=== PATIENT | female | born 1960 | race Caucasian/White ===

== ENCOUNTER 2016-11-14 03:02 | Emergency (ER) | payer MEDICAID ==
[~2016-11-14] VITALS: Ht 165.1 cm; Wt 120.9 kg
[2016-11-14 03:02] VITALS: TEMP 97.6; Ht 165.1 cm; Wt 120.9 kg
[~2016-11-14 03:02] MED LIST: ESCI20TA30 PO; GABA-338 PO; LEVE500T9 PO; LORA0.5T2 PO; LOSA25TA34 PO; METF850T2 PO; MULT1TAB69 PO; PANT40TA27 PO; PRAV40TA3 PO; SITA100T12 PO
--- OUTSIDE RECORDS SUMMARY | 2016-11-14 03:05 | XMS REPORT | Continuity of Care Document ---
Author Author [facility] Organization [facility] Address Unknown Phone Unavailable Allergies Active Description Code Type Severity Reaction Onset Reported/Identified Relationship to Patient Clinical Status Yes CODEINE Drug Allergy N/A N/A Yes CODINE CODINE Drug Allergy Unknown UNKNOWN 11/04/2015 Yes oxycodone oxycodone Drug Allergy Unknown UNKNOWN 12/13/2015 Yes alprazolam alprazolam Drug Allergy Severe ITCHING 12/19/2015 Medications Problems Date Dx Coded Attending Type Code Diagnosis Diagnosed By 11/13/2015 Caroline Garcia MD E11.9 TYPE 2 DIABETES MELLITUS WITHOUT COMPLICATIONS 11/13/2015 Caroline Garcia MD E78.5 HYPERLIPIDEMIA, UNSPECIFIED 11/13/2015 Caroline Garcia MD F02.80 DEMENTIA IN OTH DISEASES CLASSD ELSWHR W/O BEHAVRL 11/13/2015 Caroline Garcia MD F44.5 CONVERSION DISORDER WITH SEIZURES OR CONVULSIONS 11/13/2015 Caroline Garcia MD 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 11/13/2015 Caroline Garcia MD I10 ESSENTIAL (PRIMARY) HYPERTENSION 11/13/2015 Caroline Garcia MD K21.9 GASTRO-ESOPHAGEAL REFLUX DISEASE WITHOUT ESOPHAGIT 11/13/2015 Caroline Garcia MD K76.0 FATTY (CHANGE OF) LIVER, NOT ELSEWHERE CLASSIFIED 11/13/2015 Caroline Garcia MD R55 SYNCOPE AND COLLAPSE Procedures Results Test Result Range CHEM/HEM PROFILE-BEDSIDE - 11/04/15 01:57 POTASSIUM 3.9 mmol/L 3.5-5.3 METHOD Bedside ANION GAP 17 mmol/L 10-20 METHOD Bedside GLUCOSE 134 mg/dL 70-99 BLOOD UREA NITROGEN 6 mg/dL 7-20 CREATININE 0.7 mg/dL 0.6-1.0 HEMOGLOBIN 14.6 gm/dL 12.0-16.0 HEMATOCRIT 43.0 % 37.0-47.0 SODIUM 140 mmol/L 135-148 CHLORIDE 104 mmol/L 98-110 CARBON DIOXIDE 24 mmol/L 21-32 CALCIUM IONIZED 4.8 mg/dL 4.5-5.3 CBC W/DIFF - 11/13/15 17:30 BASOPHIL # 0.1 k/cumm 0.0-0.2 BASOPHIL % 1 % 0-1 EOSINOPHIL # 0.1 k/cumm 0.1-0.5 EOSINOPHIL % 2 % 2-4 GRANULOCYTE # 5.1 k/cumm 2.0-9.0 GRANULOCYTE % 60 % 50-75 LYMPHOCYTE # 2.4 k/cumm 1.0-4.0 LYMPHOCYTE % 28 % 20-30 MEAN CELL HGB 32.1 pg 27.0-33.0 MEAN CELL HGB CONCENTRATION 33.1 g/dL 32.0-37.0 MEAN CELL VOLUME 97.0 fl 80.0-100.0 MONOCYTE # 0.8 k/cumm 0.1-1.0 MONOCYTE % 10 % 4-6 RED BLOOD CELL 4.70 m/cumm 4.00-6.00 RED CELL DISTRIBUTION WIDTH 13.4 % 11.0- 15.6 WHITE BLOOD CELL 8.6 k/cumm 5.0-10.0 HEMOGLOBIN 15.1 gm/dL 12.0-16.0 HEMATOCRIT 45.6 % 37.0-47.0 PLATELET COUNT 152 k/cumm 150-400 GLUCOSE (POC) - 11/13/15 18:03 GLUCOSE (POC) 119 mg/dL 70-99 CHEM/HEM PROFILE-BEDSIDE - 11/13/15 19:23 POTASSIUM 4.3 mmol/L 3.5-5.3 METHOD Bedside ANION GAP 20 mmol/L 10-20 METHOD Bedside GLUCOSE 138 mg/dL 70-99 BLOOD UREA NITROGEN 9 mg/dL 7-20 CREATININE 0.6 mg/dL 0.6-1.0 HEMOGLOBIN 15.0 gm/dL 12.0-16.0 HEMATOCRIT 44.0 % 37.0-47.0 SODIUM 138 mmol/L 135-148 CHLORIDE 99 mmol/L 98-110 CARBON DIOXIDE 24 mmol/L 21-32 CALCIUM IONIZED 4.8 mg/dL 4.5-5.3 GLUCOSE (POC) - 11/14/15 06:03 GLUCOSE (POC) 144 mg/dL 70-99 GLUCOSE (POC) - 11/14/15 11:42 GLUCOSE (POC) 189 mg/dL -99 GLUCOSE (POC) - 11/14/15 17:39 GLUCOSE (POC) 149 mg/dL -99 GLUCOSE (POC) - 11/14/15 22:56 GLUCOSE (POC) 163 mg/dL 70-99 GLUCOSE (POC) - 11/15/15 04:55 GLUCOSE (POC) 146 mg/dL 70-99 CBC W/DIFF - 11/15/15 05:36 EOSINOPHIL # 0.1 k/cumm 0.1-0.5 EOSINOPHIL % 2 % 2-4 GRANULOCYTE # 4.2 k/cumm 2.0-9.0 GRANULOCYTE % 57 % 50-75 LYMPHOCYTE # 2.5 k/cumm 1.0-4.0 LYMPHOCYTE % 34 % 20-30 MEAN CELL HGB 31.9 pg 27.0-33.0 MEAN CELL HGB CONCENTRATION 32.6 g/dL 32.0-37.0 MEAN CELL VOLUME 97.7 fl 80.0-100.0 MONOCYTE # 0.5 k/cumm 0.1-1.0 MONOCYTE % 7 % 4-6 RED BLOOD CELL 4.42 m/cumm 4.00-6.00 RED CELL DISTRIBUTION WIDTH 13.3 % 11.0- 15.6 WHITE BLOOD CELL 7.3 k/cumm 5.0-10.0 HEMOGLOBIN 14.1 gm/dL 12.0-16.0 HEMATOCRIT 43.2 % 37.0-47.0 PLATELET COUNT 142 k/cumm 150-400 METABOLIC PANEL, BASIC - 11/15/15 05:36 POTASSIUM 3.8 mmol/L 3.5-5.3 EST GFR (MDRD) > 60 mL/min > 59 ANION GAP 7 mmol/L 5-15 EST CrCl (CG) > 60 mL/min > 59 GLUCOSE 135 mg/dL 70-99 CALCIUM 8.5 mg/dL 8.5-10.1 BLOOD UREA NITROGEN 8 mg/dL 7-20 CREATININE 0.6 mg/dL 0.6-1.0 SODIUM 137 mmol/L 135-148 CHLORIDE 103 mmol/L 98-110 CARBON DIOXIDE 27 mmol/L 21-32 PHOSPHORUS - 11/15/15 05:36 PHOSPHORUS 2.9 mg/dL 2.5-4.9 MAGNESIUM - 11/15/15 05:36 MAGNESIUM 2.0 mg/dL 1.8-2.4 GLUCOSE (POC) - 11/15/15 11:46 GLUCOSE (POC) 208 mg/dL - GLUCOSE (POC) - 11/15/15 17:36 GLUCOSE (POC) 150 mg/dL -99 GLUCOSE (POC) - 11/15/15 22:03 GLUCOSE (POC) 155 mg/dL 70-99 CBC W/DIFF - 11/16/15 05:53 EOSINOPHIL # 0.1 k/cumm 0.1-0.5 EOSINOPHIL % 2 % 2-4 GRANULOCYTE # 4.4 k/cumm 2.0-9.0 GRANULOCYTE % 55 % 50-75 LYMPHOCYTE # 2.9 k/cumm 1.0-4.0 LYMPHOCYTE % 36 % 20-30 MEAN CELL HGB 31.9 pg 27.0-33.0 MEAN CELL HGB CONCENTRATION 32.9 g/dL 32.0-37.0 MEAN CELL VOLUME 97.1 fl 80.0-100.0 MONOCYTE # 0.6 k/cumm 0.1-1.0 MONOCYTE % 7 % 4-6 RED BLOOD CELL 4.48 m/cumm 4.00-6.00 RED CELL DISTRIBUTION WIDTH 13.0 % 11.0- 15.6 WHITE BLOOD CELL 8.0 k/cumm 5.0-10.0 HEMOGLOBIN 14.3 gm/dL 12.0-16.0 HEMATOCRIT 43.5 % 37.0-47.0 PLATELET COUNT 143 k/cumm 150-400 RENAL FUNCTION PANEL - 11/16/15 05:53 POTASSIUM 4.0 mmol/L 3.5-5.3 EST GFR (MDRD) > 60 mL/min > 59 ANION GAP 6 mmol/L 5-15 EST CrCl (CG) > 60 mL/min > 59 GLUCOSE 127 mg/dL 70-99 CALCIUM 8.2 mg/dL 8.5-10.1 BLOOD UREA NITROGEN 9 mg/dL 7-20 CREATININE 0.6 mg/dL 0.6-1.0 SODIUM 138 mmol/L 135-148 CHLORIDE 104 mmol/L 98-110 CARBON DIOXIDE 28 mmol/L 21-32 ALBUMIN 3.2 gm/dL 3.4-5.0 PHOSPHORUS 2.9 mg/dL 2.5-4.9 GLUCOSE (POC) - 11/16/15 06:13 GLUCOSE (POC) 138 mg/dL 70-99 GLUCOSE (POC) - 11/16/15 11:39 GLUCOSE (POC) 162 mg/dL 70-99 GLUCOSE (POC) - 11/16/15 17:37 GLUCOSE (POC) 189 mg/dL 70-99 GLUCOSE (POC) - 11/16/15 21:52 GLUCOSE (POC) 169 mg/dL 70-99 GLUCOSE (POC) - 11/17/15 05:37 GLUCOSE (POC) 144 mg/dL 70-99 CBC W/DIFF - 11/17/15 06:47 EOSINOPHIL # 0.1 k/cumm 0.1-0.5 EOSINOPHIL % 2 % 2-4 GRANULOCYTE # 4.5 k/cumm 2.0-9.0 GRANULOCYTE % 60 % 50-75 LYMPHOCYTE # 2.2 k/cumm 1.0-4.0 LYMPHOCYTE % 30 % 20-30 MEAN CELL HGB 32.4 pg 27.0-33.0 MEAN CELL HGB CONCENTRATION 34.5 g/dL 32.0-37.0 MEAN CELL VOLUME 93.9 fl 80.0-100.0 MONOCYTE # 0.6 k/cumm 0.1-1.0 MONOCYTE % 8 % 4-6 RED BLOOD CELL 4.41 m/cumm 4.00-6.00 RED CELL DISTRIBUTION WIDTH 12.8 % 11.0- 15.6 WHITE BLOOD CELL 7.4 k/cumm 5.0-10.0 HEMOGLOBIN 14.3 gm/dL 12.0-16.0 HEMATOCRIT 41.4 % 37.0-47.0 PLATELET COUNT 138 k/cumm 150-400 RENAL FUNCTION PANEL - 11/17/15 06:47 POTASSIUM 4.4 mmol/L 3.5-5.3 EST GFR (MDRD) > 60 mL/min > 59 ANION GAP 7 mmol/L 5-15 EST CrCl (CG) > 60 mL/min > 59 GLUCOSE 139 mg/dL 70-99 CALCIUM 8.3 mg/dL 8.5-10.1 BLOOD UREA NITROGEN 9 mg/dL 7-20 CREATININE 0.6 mg/dL 0.6-1.0 SODIUM 137 mmol/L 135-148 CHLORIDE 106 mmol/L 98-110 CARBON DIOXIDE 24 mmol/L 21-32 ALBUMIN 3.1 gm/dL 3.4-5.0 PHOSPHORUS 3.1 mg/dL 2.5-4.9 GLUCOSE (POC) - 11/17/15 11:34 GLUCOSE (POC) 142 mg/dL 70-99 GLUCOSE (POC) - 11/17/15 17:09 GLUCOSE (POC) 149 mg/dL 70-99 GLUCOSE (POC) - 11/17/15 21:07 GLUCOSE (POC) 189 mg/dL 70-99 GLUCOSE (POC) - 11/18/15 04:29 GLUCOSE (POC) 131 mg/dL 70-99 CBC W/DIFF - 11/18/15 06:27 EOSINOPHIL # 0.1 k/cumm 0.1-0.5 EOSINOPHIL % 2 % 2-4 GRANULOCYTE # 4.2 k/cumm 2.0-9.0 GRANULOCYTE % 53 % 50-75 LYMPHOCYTE # 2.9 k/cumm 1.0-4.0 LYMPHOCYTE % 37 % 20-30 MEAN CELL HGB 31.5 pg 27.0-33.0 MEAN CELL HGB CONCENTRATION 32.5 g/dL 32.0-37.0 MEAN CELL VOLUME 97.0 fl 80.0-100.0 MONOCYTE # 0.6 k/cumm 0.1-1.0 MONOCYTE % 8 % 4-6 RED BLOOD CELL 4.38 m/cumm 4.00-6.00 RED CELL DISTRIBUTION WIDTH 13.2 % 11.0- 15.6 WHITE BLOOD CELL 7.8 k/cumm 5.0-10.0 HEMOGLOBIN 13.8 gm/dL 12.0-16.0 HEMATOCRIT 42.5 % 37.0-47.0 PLATELET COUNT 147 k/cumm 150-400 RENAL FUNCTION PANEL - 11/18/15 06:27 POTASSIUM 3.9 mmol/L 3.5-5.3 EST GFR (MDRD) > 60 mL/min > 59 ANION GAP 4 mmol/L 5-15 EST CrCl (CG) > 60 mL/min > 59 GLUCOSE 136 mg/dL 70-99 CALCIUM 8.5 mg/dL 8.5-10.1 BLOOD UREA NITROGEN 9 mg/dL 7-20 CREATININE 0.7 mg/dL 0.6-1.0 SODIUM 138 mmol/L 135-148 CHLORIDE 105 mmol/L 98-110 CARBON DIOXIDE 29 mmol/L 21-32 ALBUMIN 3.2 gm/dL 3.4-5.0 PHOSPHORUS 3.4 mg/dL 2.5-4.9 GLUCOSE (POC) - 11/18/15 11:48 GLUCOSE (POC) 167 mg/dL 70-99 GLUCOSE (POC) - 11/18/15 17:48 GLUCOSE (POC) 173 mg/dL 70-99 GLUCOSE (POC) - 11/18/15 20:08 GLUCOSE (POC) 185 mg/dL 70-99 GLUCOSE (POC) - 11/19/15 05:23 GLUCOSE (POC) 143 mg/dL 70-99 CBC W/DIFF - 11/19/15 06:24 EOSINOPHIL # 0.2 k/cumm 0.1-0.5 EOSINOPHIL % 2 % 2-4 GRANULOCYTE # 4.1 k/cumm 2.0-9.0 GRANULOCYTE % 56 % 50-75 LYMPHOCYTE # 2.5 k/cumm 1.0-4.0 LYMPHOCYTE % 34 % 20-30 MEAN CELL HGB 32.5 pg 27.0-33.0 MEAN CELL HGB CONCENTRATION 33.5 g/dL 32.0-37.0 MEAN CELL VOLUME 96.9 fl 80.0-100.0 MONOCYTE # 0.5 k/cumm 0.1-1.0 MONOCYTE % 7 % 4-6 RED BLOOD CELL 4.53 m/cumm 4.00-6.00 RED CELL DISTRIBUTION WIDTH 13.2 % 11.0- 15.6 WHITE BLOOD CELL 7.3 k/cumm 5.0-10.0 HEMOGLOBIN 14.7 gm/dL 12.0-16.0 HEMATOCRIT 43.9 % 37.0-47.0 PLATELET COUNT 158 k/cumm 150-400 RENAL FUNCTION PANEL - 11/19/15 06:24 POTASSIUM 4.0 mmol/L 3.5-5.3 EST GFR (MDRD) > 60 mL/min > 59 ANION GAP 7 mmol/L 5-15 EST CrCl (CG) > 60 mL/min > 59 GLUCOSE 143 mg/dL 70-99 CALCIUM 9.1 mg/dL 8.5-10.1 BLOOD UREA NITROGEN 7 mg/dL 7-20 CREATININE 0.6 mg/dL 0.6-1.0 SODIUM 140 mmol/L 135-148 CHLORIDE 104 mmol/L 98-110 CARBON DIOXIDE 29 mmol/L 21-32 ALBUMIN 3.4 gm/dL 3.4-5.0 PHOSPHORUS 3.7 mg/dL 2.5-4.9 GLUCOSE (POC) - 11/19/15 11:27 GLUCOSE (POC) 176 mg/dL 70-99 GLUCOSE (POC) - 11/19/15 17:09 GLUCOSE (POC) 133 mg/dL 70-99 GLUCOSE (POC) - 11/19/15 20:23 GLUCOSE (POC) 236 mg/dL 70-99 GLUCOSE (POC) - 11/20/15 06:57 GLUCOSE (POC) 167 mg/dL 70-99 GLUCOSE (POC) - 11/20/15 11:51 GLUCOSE (POC) 175 mg/dL 70-99 TROPONIN I BEDSIDE - 11/22/15 00:48 METHOD Bedside TROPONIN I < 0.04 ng/mL < 0.11 CBC W/DIFF - 11/22/15 00:50 BASOPHIL # 0.1 k/cumm 0.0-0.2 BASOPHIL % 1 % 0-1 EOSINOPHIL # 0.2 k/cumm 0.1-0.5 EOSINOPHIL % 1 % 2-4 GRANULOCYTE # 7.9 k/cumm 2.0-9.0 GRANULOCYTE % 66 % 50-75 LYMPHOCYTE # 3.0 k/cumm 1.0-4.0 LYMPHOCYTE % 25 % 20-30 MEAN CELL HGB 33.0 pg 27.0-33.0 MEAN CELL HGB CONCENTRATION 34.5 g/dL 32.0-37.0 MEAN CELL VOLUME 95.6 fl 80.0-100.0 MONOCYTE # 0.8 k/cumm 0.1-1.0 MONOCYTE % 7 % 4-6 RED BLOOD CELL 4.58 m/cumm 4.00-6.00 RED CELL DISTRIBUTION WIDTH 13.3 % 11.0- 15.6 WHITE BLOOD CELL 11.9 k/cumm 5.0-10.0 HEMOGLOBIN 15.1 gm/dL 12.0-16.0 HEMATOCRIT 43.8 % 37.0-47.0 PLATELET COUNT 160 k/cumm 150-400 PARTIAL THROMBOPLASTIN TIME - 11/22/15 00:50 PARTIAL THROMBOPLASTIN TIME 33 sec 23-39 METABOLIC PANEL, COMPREHN - 11/22/15 00:50 POTASSIUM 4.3 mmol/L 3.5-5.3 EST GFR (MDRD) > 60 mL/min > 59 ANION GAP 10 mmol/L 5-15 GLUCOSE 162 mg/dL 70-99 CALCIUM 9.2 mg/dL 8.5-10.1 BLOOD UREA NITROGEN 14 mg/dL 7-20 CREATININE 0.8 mg/dL 0.6-1.0 SODIUM 138 mmol/L 135-148 CHLORIDE 104 mmol/L 98-110 AST/SGOT 32 Units/L 10-37 ALT/SGPT 58 Units/L < 66 CARBON DIOXIDE 24 mmol/L 21-32 TOTAL PROTEIN 7.7 gm/dL 6.4-8.2 ALBUMIN 3.5 gm/dL 3.4-5.0 BILI TOTAL 0.4 mg/dL 0.0-1.0 ALKALINE PHOSPHATASE TOTAL 78 IU/L 45- 117 TROPONIN I - 11/22/15 00:50 TROPONIN I < 0.02 ng/mL < 0.07 CHEM/HEM PROFILE-BEDSIDE - 11/26/15 21:30 POTASSIUM 4.2 mmol/L 3.5-5.3 METHOD Bedside ANION GAP 23 mmol/L 10-20 METHOD Bedside GLUCOSE 243 mg/dL 70-99 BLOOD UREA NITROGEN 8 mg/dL 7-20 CREATININE 0.6 mg/dL 0.6-1.0 HEMOGLOBIN 15.0 gm/dL 12.0-16.0 HEMATOCRIT 44.0 % 37.0-47.0 SODIUM 138 mmol/L 135-148 CHLORIDE 99 mmol/L 98-110 CARBON DIOXIDE 22 mmol/L 21-32 CALCIUM IONIZED 4.7 mg/dL 4.5-5.3 CBC W/DIFF - 11/26/15 21:41 EOSINOPHIL # 0.1 k/cumm 0.1-0.5 EOSINOPHIL % 1 % 2-4 GRANULOCYTE # 5.4 k/cumm 2.0-9.0 GRANULOCYTE % 62 % 50-75 LYMPHOCYTE # 2.5 k/cumm 1.0-4.0 LYMPHOCYTE % 29 % 20-30 MEAN CELL HGB 33.1 pg 27.0-33.0 MEAN CELL HGB CONCENTRATION 34.4 g/dL 32.0-37.0 MEAN CELL VOLUME 96.3 fl 80.0-100.0 MONOCYTE # 0.7 k/cumm 0.1-1.0 MONOCYTE % 8 % 4-6 RED BLOOD CELL 4.35 m/cumm 4.00-6.00 RED CELL DISTRIBUTION WIDTH 13.2 % 11.0- 15.6 WHITE BLOOD CELL 8.7 k/cumm 5.0-10.0 HEMOGLOBIN 14.4 gm/dL 12.0-16.0 HEMATOCRIT 41.9 % 37.0-47.0 PLATELET COUNT 169 k/cumm 150-400 CHEM/HEM PROFILE-BEDSIDE - 11/30/15 02:46 POTASSIUM 4.2 mmol/L 3.5-5.3 METHOD Bedside ANION GAP 19 mmol/L 10-20 METHOD Bedside GLUCOSE 126 mg/dL 70-99 BLOOD UREA NITROGEN 11 mg/dL 7-20 CREATININE 0.5 mg/dL 0.6-1.0 HEMOGLOBIN 14.3 gm/dL 12.0-16.0 HEMATOCRIT 42.0 % 37.0-47.0 SODIUM 139 mmol/L 135-148 CHLORIDE 101 mmol/L 98-110 CARBON DIOXIDE 24 mmol/L 21-32 CALCIUM IONIZED 4.9 mg/dL 4.5-5.3 CREATINE KINASE (CK/CPK) - 12/13/15 01:10 CREATINE KINASE (CK/CPK) 75 Units/L < 193 CHEM/HEM PROFILE-BEDSIDE - 12/13/15 01:17 POTASSIUM 4.0 mmol/L 3.5-5.3 METHOD Bedside ANION GAP 20 mmol/L 10-20 METHOD Bedside GLUCOSE 149 mg/dL 70-99 BLOOD UREA NITROGEN 11 mg/dL 7-20 CREATININE 0.7 mg/dL 0.6-1.0 HEMOGLOBIN 14.6 gm/dL 12.0-16.0 HEMATOCRIT 43.0 % 37.0-47.0 SODIUM 138 mmol/L 135-148 CHLORIDE 101 mmol/L 98-110 CARBON DIOXIDE 22 mmol/L 21-32 CALCIUM IONIZED 4.7 mg/dL 4.5-5.3 TROPONIN I BEDSIDE - 01/19/16 02:07 METHOD Bedside TROPONIN I < 0.04 ng/mL < 0.11 CHEM/HEM PROFILE-BEDSIDE - 01/19/16 02:37 POTASSIUM 4.2 mmol/L 3.5-5.3 METHOD Bedside ANION GAP 20 mmol/L 10-20 METHOD Bedside GLUCOSE 168 mg/dL 70-99 BLOOD UREA NITROGEN 9 mg/dL 7-20 CREATININE 0.6 mg/dL 0.6-1.0 HEMOGLOBIN 14.3 gm/dL 12.0-16.0 HEMATOCRIT 42.0 % 37.0-47.0 SODIUM 139 mmol/L 135-148 CHLORIDE 101 mmol/L 98-110 CARBON DIOXIDE 23 mmol/L 21-32 CALCIUM IONIZED 4.8 mg/dL 4.5-5.3 Encounters ACCT No. Visit Date/Time Discharge Status Pt. Type Provider Facility Loc./Unit Complaint [id number] 02/29/2016 01:34:00 2015 03:18:00 DIS Emergency Joseph GOOD, [facility] [id number] 02/28/2016 02:22:00 2015 04:50:00 DIS Emergency [facility] [id number] 02/13/2016 02:36:00 2015 04:51:00 DIS Emergency [facility] [id number] 01/19/2016 01:20:00 2015 03:10:00 DIS Emergency [facility] [id number] 12/24/2015 23:21:00 2015 00:00:00 DIS Emergency [id number] 12/19/2015 01:13:00 2015 04:23:00 DIS Emergency [facility] [id number] 12/03/2015 22:37:00 2015 23:50:00 [id number] 11/30/2015 02:10:00 2015 04:20:00 DIS Emergency [facility] [id number] 11/26/2015 20:59:00 2015 22:45:00 DIS Emergency Hemant GOOD, [facility] [id number] 11/21/2015 23:56:00 2015 02:52:00 DIS Emergency Elena GOOD[facility] [id number] 11/13/2015 21:17:00 2015 17:43:00 DIS Inpatient Jose GOOD, [facility]argas [id number] 11/04/2015 01:10:00 2015 03:07:00 DIS Emergency Joseph GOOD, Michael Hall [facility] [id number] 12/12/2015 23:51:00 Document Registration
[2016-11-14] MEDS ORDERED: NORMAL SALINE 1,000 ML IV ONE (03:15)
--- NOTE | 2016-11-14 03:17 | ERPDOC ---
Departure Disposition Decision Date: Nov 14, 2016 Disposition Decision Time: 04:30 Disposition: 01 DISCHARGED HOME, SELF-CARE Impression Impression Impression: Primary Impression: Psychogenic nonepileptic seizure Severity: Moderate Condition: Improved Seen By: Physician only Referrals: OTHER (PCP) FABIAN COOPER DO (Family) Patient Instructions: Nonepileptic Seizures (ED) Problems/Meds/Labs Reviewed?: Yes Medications reviewed and manag: Yes Additional Instructions: Follow-up with case investigator at Dr. Cooper's office Follow up care ordered?: Yes Mental Status: Alert, Oriented HPI - General Medical General Chief Complaint: Seizure Stated Complaint: SEIZURE Time Seen by Provider: 03:17 Source: patient, EMS, EMS notes reviewed, old records Exam Limitations: other (suspect underlying psychiatric issues) HPI - General Medical Initial Comments Patient is a 56-year-old female presents emergency room for evaluation of seizure. Patient was evaluated 6 days ago in the emergency department was discharged with psychogenic nonepileptic pseudoseizures. Patient today had what appeared to be a seizure, EMS was called. Patient on arrival of EMS had her arms crossed for chest and was clenched landing on her left side she was responding to commands at that time. Patient was placed in the ambulance and brought to the ER for evaluation Allergies: Coded Allergies: codeine (Verified Allergy, Mild, 11/14/16) Past History Patient Surgical History unknown Past Medical History Metabolic: diabetes, hypertension GI: GERD, other Neurological: migraines, seizures Musculoskeletal: osteoarthritis Psychological: anxiety, depression Surgical History Reproductive/: uterine ablation Joint: shoulder Family History Family PMH: FOUND: other Social History Does patient use chewing tobac: No Second Hand Exposure: No Substance Use Type: does not use Alcohol Intake: none Review of Systems Constitutional Constitutional: DENIES: appetite decrease, chills, dizziness, fever, weakness ENMT Sinuses: DENIES: congestion, rhinorrhea Cardiovascular Cardiac: DENIES: chest pain Pulmonary Respiratory: DENIES: cough GI Upper Abdomen: DENIES: nausea, pain, vomiting Lower Abdomen: DENIES: constipation, diarrhea, pain General: DENIES: frequency, urgency Integumentary Skin: DENIES: color change, itching, rash Neurological General: seizures (pseudoseizures) Psychiatric Psychiatric: anxiety, DENIES: depression, emotional instability, nervousness Physical Exam General General Nourishment: well nourished, well developed, obese General Body Habitus: well groomed Vitals and Pain Weight: Kilograms: 120.900 Height (feet): 5 Height (inches): 5.00 Triage Pain Scale: RN VS reviewed by Provider: Yes Eyes (brief) Eyes Brief: found: EOMI ENMT (brief) ENMT Brief: FOUND: mucosa moist, normal dentition, NOT FOUND: nasal erythema, pharnyx erythema, tonsillar deviation Neck (brief) Neck: NOT FOUND: adenopathy, spasm, tenderness Respiratory (brief) Respiratory: FOUND: clear all elizabeth, equal bilaterally, NOT FOUND: rales, wheezes Cardiovascular (brief) Cardiac: FOUND: regular rate, regular rhythm Capillary Refill: <2 sec Abdomen (brief) Abdominal Brief: FOUND: bowel normo active x4, soft, NOT FOUND: tender Lymphatic (brief) Lymphatic Brief: NOT FOUND: adenopathy Musculoskeletal (brief) Musculoskeletal Brief: NOT FOUND: spasm, tenderness Integumentary (brief) Integumentary Brief: FOUND: dry, pink, warm, NOT FOUND: rash Neurologic (brief) Neurological Brief: FOUND: CN w/o gross def to obs, motor-no gross deficits, sensory-no gross deficits Psychiatric (brief) Psychiatric Brief: FOUND: alert, oriented Differential Diagnoses Considering: Alcohol Intoxication, Depression, Hypo/Hyperglycemia, Hypo/ Hyperkalemia, Hypo/Hypernatremia, Medication Effect, Metabolic, Seizure, Other ( pseudoseizures) Progress Results/Orders Orders Procedure Category Date Status Time Iv Lock (Ed Only) EDM 11/14/16 Transmitted 03:10 Cbc W/Auto LAB 11/14/16 Complete Diff-Reflex Manual 03:10 Bmp - Basic Metabolic LAB 11/14/16 Complete Panel 03:10 Normal Saline (Normal PHA 11/14/16 Complete Saline Iv) 03:15 Troponin I W LAB 11/14/16 Complete Hemolysis Index 03:24 EKG EKG 11/14/16 Taken 03:24 Case Management CONS 11/14/16 Transmitted Consult 04:34 Lab Results Laboratory Tests Test 11/14/16 03:26 White Blood Count 7.4T/MM3 Red Blood Count 4.17M/MM3 Hemoglobin 13.2GM/DL Hematocrit 40.1% Mean Corpuscular Volume 96.2UM3 Mean Corpuscular Hemoglobin 31.7UUG Mean Corpuscular Hemoglobin Concent 32.9GM/DL RDW Standard Deviation 46.3FL Platelet Count 146T/MM3 Mean Platelet Volume 11.1UM3 Immature Granulocyte % (Auto) 0.1% Neutrophils (%) (Auto) 54.2% Lymphocytes (%) (Auto) 35.4% Monocytes (%) (Auto) 7.7% Eosinophils (%) (Auto) 2.2% Basophils (%) (Auto) 0.4% Absolute Immature Granulocyte (auto 0.01T/MM3 Absolute Neutrophils (auto) 4.0T/MM3 Absolute Lymphocytes (auto) 2.6T/MM3 Absolute Monocytes (auto) 0.6T/MM3 Absolute Eosinophils (auto) 0.2T/MM3 Absolute Basophils (auto) 0.0T/MM3 Turbidity < 20 Sodium Level 136MEQ/L Potassium Level 4.0MEQ/L Chloride Level 105MEQ/L Carbon Dioxide Level 24MEQ/L Anion Gap 7MEQ/L Blood Urea Nitrogen 5.0MG/DL Creatinine 0.5MG/DL Glomerular Filtration Rate Calc 128 BUN/Creatinine Ratio 10RATIO Glucose Level 306MG/DL Calculated Osmolality 271MOSM/KG Calcium Level 9.3MG/DL Icterus Index < 2 Troponin I < 0.012ng/ml Chemistry Specimen Hemolysis < 15 Medications Current ED Medications Sodium Chloride (Normal Saline IV) 1,000 ml @ 999 mls/hr Q1H1M ONCE IV Last administered on 11/14/16t 03:45; Start 11/14/16 at 03:15; Stop 11/14/16 at 04:15; Status DC EKG EKG : Rate: 60-100 Rhythm: sinus [place]ternut: normal QRS: normal Intervals: normal ST/T: non-specific changes Interpreted by: signing physician YESENIA GELLER MD Nov 14, 2016 03:17
[2016-11-14 03:31] LABS: BASOPHILS % (AUTO) 0.4 % (0-2); EOSINOPHILS # (AUTO) 0.2 T/MM3 (0-0.5); EOSINOPHILS % (AUTO) 2.2 % (0-4); HCT - HEMATOCRIT 40.1 % (36-46); HGB - HEMOGLOBIN 13.2 GM/DL (12-16); IMMATURE GRANULOCYTE # (AUTO) 0.01 T/MM3 (0.00-0.03); IMMATURE GRANULOCYTE % (AUTO) 0.1 % (0.0-0.5); LYMPHOCYTES # (AUTO) 2.6 T/MM3 (1-4.8); LYMPHOCYTES % (AUTO) 35.4 % (23-45); MEAN CORPUSCULAR HGB 31.7 UUG (26-34); MEAN CORPUSCULAR HGB CONC(MCHC 32.9 GM/DL (31-37); MEAN CORPUSCULAR VOLUME 96.2 UM3 (80-100); MEAN PLATELET VOLUME 11.1 UM3 (9.4-12.4); MONOCYTES # (AUTO) 0.6 T/MM3 (0-0.8); MONOCYTES % (AUTO) 7.7 % (0-9.0); NEUTROPHILS % (AUTO) 54.2 % (33-66); RED BLOOD COUNT 4.17 M/MM3 (4.00-5.20); WBC - WHITE BLOOD COUNT 7.4 T/MM3 (4.5-11.0)
--- OUTSIDE RECORDS SUMMARY | 2016-11-14 03:38 | XMS REPORT | Continuity of Care Document ---
[...] Status Pt. Type Provider Facility Loc./Unit Complaint [id number] 02/29/2016 01:34:00 2015 03:18:00 DIS Emergency Joseph GOOD, [facility] [id number] 02/28/2016 02:22:00 2015 04:50:00 DIS Emergency [facility] [id number] 02/13/2016 02:36:00 2015 04:51:00 DIS Emergency [facility] [id number] 01/19/2016 01:20:00 2015 03:10:00 DIS Emergency [facility] [id number] 12/24/2015 23:21:00 2015 00:00:00 [id number] 12/19/2015 01:13:00 2015 04:23:00 DIS Emergency [facility] [id number] 12/03/2015 22:37:00 2015 23:50:00 [id number] 11/30/2015 02:10:00 2015 04:20:00 DIS Emergency [facility] [id number] 11/26/2015 20:59:00 2015 22:45:00 DIS [id number] 11/21/2015 23:56:00 2015 02:52:00 DIS [id number] 11/13/2015 21:17:00 2015 17:43:00 DIS Inpatient Jose GOOD[facility] [id number] 11/04/2015 01:10:00 2015 03:07:00 DIS Emergency Joseph GOOD, Michael Hall [facility] [id number] 12/12/2015 23:51:00 Document Registration
--- NOTE | 2016-11-14 03:40 | NUR ---
REASSESSMENT PT REPORTS NEED TO USE BATHROOM. PT NOTED TO GET UP FROM STRETCHER WITH MINIMAL ASSISTANCE AND AMBULATE TO AND FROM BATHROOM INDEPENDENTLY. PT NOTED TO BE ALERT AND CHEERFUL DURING AMBULATION. WILL CONTINUE TO MONITOR.
[2016-11-14 03:45] LABS: ANION GAP 7 MEQ/L (5-15); BUN/CREATININE RATIO 10 RATIO (6-26); CALCIUM 9.3 MG/DL (8.4-10.2); CHLORIDE 105 MEQ/L (98-107); CO2 - CARBON DIOXIDE 24 MEQ/L (22-30); CREATININE 0.5 MG/DL (0.7-1.2); GLOMERULAR FILTRATION RATE 128; GLUCOSE 306 MG/DL (65-110); SODIUM 136 MEQ/L (134-144)
[2016-11-14 04:37] VITALS: BP 110/55; PULSE 80; RESP 19; O2SAT 98
--- NOTE | 2016-11-14 04:37 | NUR ---
DEPARTURE PT COLLECTED BELONGINGS AND AMBULATED INDEPENDENTLY TO EXIT WITH SISTER, GAIT STEADY.
--- NOTE | 2016-11-17 16:03 | NUR ---
ED FOLLOW THIS WORKER CALLED AND SPOKE TO TRANSITIONAL NURSE WITH DR. ANOOP EDEN. PT WAS SEEN FOR FOLLOW UP WITH DR. DAVALOS ON 11/16/16. PT IS CONSIDERING A MOVE TO [place]. PT IS SCHEDULED FOR ANOTHER APPOINTMENT ON 12/25/16 FOR FOLLOW UP. TRANSITIONAL NURSE PLANNING TO FOLLOW UP WITH PT. Addendum: 11/17/16 at 1609 by BRYCE DE LA PAZ Amended: Links added.
== END 2016-11-14 04:37 | disposition home or self-care (01) ==
LOC: ED 03:02
DX: F44.5 Conversion disorder with seizures or convulsions (principal)
CPT/HCPCS: 36415; 80048; 84484; 85025; 93005; 96360; 99284; J7030